=== PATIENT | male | born 1985 | race Caucasian/White ===

== ENCOUNTER 2017-10-04 20:42 | Emergency (ER) | payer OTHER ==
[2017-10-04] MEDS: HYDROCODONE/APAP (5/325) TAB PO (22:13)
[2017-10-04] MEDS: IBUPROFEN 600 MG TAB PO (22:13)
== END 2017-10-05 00:37 | disposition home or self-care (01) ==
LOC: FTE 10-05 00:37
DX: M54.2 Cervicalgia (principal); M54.9 Dorsalgia, unspecified; F17.210 Nicotine dependence, cigarettes, uncomplicated
CPT/HCPCS: 72040; 72072; 99283-25